=== PATIENT | male | born 1990 | race Caucasian/White ===

== ENCOUNTER 2016-04-24 21:55 | Emergency (ER) | payer OTHER ==
[2016-04-24 22:12] VITALS: BP 169/111; PULSE 88; RESP 18; TEMP 99; O2SAT 97
--- NOTE | 2016-04-24 22:51 | UCPHY ---
H & P Patient Type: Established Chief Complaint Nursing Narrative: went to dentist this am for tooth pain -put on Amox and Percocet - told tooth was infected but did not have time to pull tooth @ Dentist apt this am - has been taking 1 Percocet every 4hrs with out relief Time Seen by Provider: 04/24/16 22:23 HPI/ROS: Chief complaint: Tooth pain HPI: 25-year-old male with a history of root canal in his left lower molars with worsening pain for the last couple of days. Patient with a dentist this morning started on amoxicillin and Percocet and referred to an agricultural research technician for evaluation. He has been taking his medications but has had increasing pain tonight to a 10/10. No fevers or chills. No swelling in his jaw or throat. ROS: 10 point Review of Systems is negative except as noted in the HPI. Physical exam: General: Awake, very uncomfortable appearing Mouth: With he is tenderness to percussion in his left lower 2nd molar. There is no gingival erythema. There is no fluctuance or pointing. There is no trismus. Skin: No rash - Personal History Current Tetanus Diphtheria and Acellular Pertussis (TDAP): Yes - Medical/Surgical History Other PMH: DENIES - Family History Significant Family History: No pertinent family hx - Social History Smoking Status: Current every day smoker Constitutional: Initial Vital Signs Temperature (C) 37.2 C 04/24/16 22:04 Heart Rate 88 04/24/16 22:04 Respiratory Rate 18 04/24/16 22:04 Blood Pressure 169/111 H 04/24/16 22:04 O2 Sat (%) 97 04/24/16 22:04 O2 Delivery Mode Room Air Allergies/Adverse Reactions: No Known Allergies Allergy (Unverified 11/20/14 16:07) Home Medications: Medication Instructions Recorded NK [No Known Home Meds] 11/20/14 Medical Decision Making ED Course/Re-evaluation: Procedure: Regional anesthesia. A left inferior alveolar nerve block was performed for left lower molar pain indication. The block was performed with Marcaine with epinephrine. The patient experienced complete pain relief. The procedure was performed by myself. Departure - Departure Disposition: Home, Routine, Self-Care Clinical Impression: Toothache Condition: Good Instructions: Toothache (ED) Additional Instructions: Follow up with your dentist tomorrow morning. - PQRS PQRS Measurement: NA
== END 2016-04-24 23:05 | disposition home or self-care (01) ==
LOC: CED 21:55
PROC: 3E0T3CZ (ICD-10-PCS; principal; 2016-04-24)
DX: K08.89 Other specified disorders of teeth and supporting structures (principal); Z72.0 Tobacco use
CPT/HCPCS: 64420-PO; 99213-PO; G0463-PO